=== PATIENT | female | born 2000 | race Asian ===

== ENCOUNTER 2022-09-02 18:41 | Emergency (ER) | payer OTHER ==
[~2022-09-02] VITALS: Ht 149.9 cm; Wt 52.7 kg
[2022-09-02 19:32] VITALS: BP 111/80
[2022-09-02] MEDS ORDERED: CEPH-510 PO (20:02)
== END 2022-09-02 20:35 | disposition home or self-care (01) ==
LOC: ER 18:46
DX: O90.1 Disruption of perineal obstetric wound (principal)